=== PATIENT | male | born 1975 | race Caucasian/White ===

== ENCOUNTER 2016-05-06 09:09 | Emergency (ER) | payer OTHER ==
[2016-05-06] MEDS ORDERED: NORCO, ANEXSIA 5/325MG TABLET (HYDROcodone/ACETAMINOPHEN) As Ordered ONE (09:27)
--- NOTE | 2016-05-06 11:19 | EDDOCDS ---
Physician Documentation [facility] Name: Valentin Jimenez Age: 40 yrs Sex: Male : 1975 Arrival Date: 05/06/2016 Time: 09:09 Bed PR Private MD: NO PRIMARY PHYSICIAN, . Disposition: 05/06/16 11:02 Discharged to Home/Self Care. Impression: Pain in right hand. - Condition is Stable. - Discharge Instructions: Arthritis, Nonspecific. - Prescriptions for Hydrocodone- Acetaminophen 5-325 mg Oral Tablet - take 1 tablet by ORAL route every 6 hours As needed MDD: 4 tabs; 16 tablet. - Medication Reconciliation form. - Follow up: Private Physician; When: Call to arrange an appointment; Reason: Wound/Symptom Recheck, Recheck today's complaints, Worsening of conditions, Continuance of care. - Problem is an ongoing problem. - Symptoms have improved. - Notes: Follow up with [facility] on Sunday. Historical: - Allergies: Codeine Sulfate (itching); SULFA (SULFONAMIDES) (Rash); - Home Meds: 1. ibuprofen 200 mg Oral cap 2 caps as needed (Last dose: 05/05/2016) - PMHx: none; - PSHx: rods and pins in hand March (removed Apr 2016); Knee Arthroplasty, Right; - Social history: Smoking status: Patient uses tobacco products, heavy tobacco smoker. No barriers to communication noted, The patient speaks fluent Libyan, Speaks appropriately for age. - Family history: Not pertinent. - : The pt / caregiver states he / she is not on anticoagulants. Home medication list is obtained from the patient. - Exposure Risk Screening:: None identified. Vital Signs: 05/06 09:10 BP 133 / 92; Pulse 84; Resp 18; Temp 98.9; Pulse Ox 100% ; Weight 84.82 kg / 187 lbs; elp Height 6 ft. 1 in. (185.42 cm); Pain 10/10; 11:07 BP 128 / 84; Pulse 64; Resp 18; Temp 97.6(O); Pulse Ox 97% on R/A; Pain 6/10; ct3 09:10 Body Mass Index 24.67 (84.82 kg, 185.42 cm) elp MDM: 09:22 HYDROcodone-acetaminophen 5 mg-325 mg 2 tabs PO once ordered. cc10 09:23 Hand, Complete Ordered. EDMS 09:32 [facility] Payment Agreement was scanned into [employer] and attached to record. mm15 09:32 Financial registration complete. mm15 Administered Medications: 09:28 Drug: HYDROcodone-acetaminophen 2 tabs [hydrocodone 5 mg-acetaminophen 325 mg tablet (2 hs1 tabs)] Route: PO; 11:16 Follow up: Response: Pain is decreased dwg Signatures: Dispatcher [employer] EDSC Ayad Sheridan RN RN dw Marline Amro RN RN hs1 [place] mm15 Aron See PA-C PAMónica cc10 The chart was reviewed and I authenticate all verbal orders and agree with the evaluation and treatment provided.Attachments: 09:32 [facility] Payment Agreement mm15 MTDD
--- NOTE | 2016-05-06 11:19 | EDDOCDS ---
Nurse's Notes [facility] Name: Valentin Jimenez Age: 40 yrs Sex: Male : 1975 Arrival Date: 05/06/2016 Time: 09:09 Bed PR Private MD: NO PRIMARY PHYSICIAN, . Diagnosis: Pain in right hand Presentation: 05/06 09:13 Presenting complaint: Patient states: surgery March 16 in [place] at [facility] for hs1 broken hand - pins placed. Pins removed Apr 25 and patient states has been hurting ever since. Patient goes to physical therapy - patient reports hurting more since physical therapy. Patient states has tried ice and hot packs. Patient here for pain. Adult Sepsis Screening: The patient does not have new or worsening altered mentation. Patient's respiratory rate is less than 22. Systolic blood pressure is greater than 100. Patient has a qSOFA score of 0- Negative Sepsis Screen. Suicide/Homicide risk assessment- the patient denies having any suicidal and/or homicidal ideations and does not present with any other emotional, behavioral or mental health complaints. 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 Transition of care: patient was not received from another setting of care. 09:13 Acuity: DIANA Level 4 hs1 09:13 Method Of Arrival: Walkin/Carried/Asstd hs1 Triage Assessment: 09:17 General: Appears in no apparent distress, Behavior is appropriate for age, cooperative. hs1 Pain: Location: right hand. HIV screening NA for this visit Offered previously. Derm: Skin is pink, warm & dry. normal, surgical site not swollen or red. Musculoskeletal: Range of motion limited in MCP of right ring finger and MCP of right little finger. Historical: - Allergies: Codeine Sulfate (itching); SULFA (SULFONAMIDES) (Rash); - Home Meds: 1. ibuprofen 200 mg Oral cap 2 caps as needed (Last dose: 05/05/2016) - PMHx: none; - PSHx: rods and pins in hand March (removed Apr 2016); Knee Arthroplasty, Right; - Social history: Smoking status: Patient uses tobacco products, heavy tobacco smoker. No barriers to communication noted, The patient speaks fluent Macedonian, Speaks appropriately for age. - Family history: Not pertinent. - : The pt / caregiver states he / she is not on anticoagulants. Home medication list is obtained from the patient. - Exposure Risk Screening:: None identified. Screenin:19 Screening information is obtained from the patient. Fall risk: No risks identified. hs1 Assistance ADL's: requires no assistance with activities of daily living. Abuse/DV Screen: The patient / caregiver reports he/she is: not in a situation that causes fear, pain or injury. Nutritional screening: No deficits noted. Advance Directives: There is no active DNR order. home support is adequate. Assessment: 10:18 Reassessment: Patient states feeling better. Patient states symptoms have improved. hs1 patient stated pain decreasing. . General: Appears in no apparent distress, Behavior is appropriate for age, cooperative. Pain: Location: right hand. Musculoskeletal: Range of motion limited in MCP of right ring finger and MCP of right little finger. Vital Signs: 09:10 BP 133 / 92; Pulse 84; Resp 18; Temp 98.9; Pulse Ox 100% ; Weight 84.82 kg; Height 6 elp ft. 1 in. (185.42 cm); Pain 10/10; 11:07 BP 128 / 84; Pulse 64; Resp 18; Temp 97.6(O); Pulse Ox 97% on R/A; Pain 6/10; ct3 09:10 Body Mass Index 24.67 (84.82 kg, 185.42 cm) [facility] Vitals: 09:10 Log In Time: May 06, 2016 at 09:08. [facility] ED Course: 09:10 Patient visited by Juana Toney PCA. elp 09:10 NO PRIMARY PHYSICIAN, . is Private Physician. elp 09:10 Patient moved to Waiting elp 09:12 Patient visited by Juana Toney PCA. elp 09:12 Patient moved to Triage 2 hs1 09:15 Aron See [facility] cc10 09:15 Trang Lancaster MD is Attending Physician. cc10 09:15 Triage Initiated hs1 09:18 Patient visited by Aron See PA-C. cc10 09:18 Patient visited by Aron See PA-C. cc10 09:28 Patient moved to TR2 hs1 09:32 [facility] Payment Agreement was scanned into [employer] and attached to record. mm15 10:18 Patient visited by Marline Amor RN. hs1 10:48 Patient visited by Lidia Patel PCA. ct3 10:52 Patient moved to ct3 11:09 Patient visited by Lidia Patel PCA. ct3 11:17 The patient / caregiver is instructed regarding the plan of care and ED course. dwg 11:17 No IV's were initiated during this patient's visit. No procedures done that require dwg assistance. 11:18 Patient visited by Ayad Sheridan RN. dwg Administered Medications: 09:28 Drug: HYDROcodone-acetaminophen 2 tabs [hydrocodone 5 mg-acetaminophen 325 mg tablet (2 hs1 tabs)] Route: PO; 11:16 Follow up: Response: Pain is decreased dwg Order Results: There are currently no results for this order. Outcome: 11:02 Discharge ordered by Provider. cc10 11:16 Discharge Assessment: Patient awake, alert and oriented x 3. No cognitive and/or dwg functional deficits noted. Patient verbalized understanding of disposition instructions. patient administered narcotics - yes. Pt provided with safe discharge. The following High Risk Discharge criteria are identified: None. Discharged to home ambulatory. Condition: good Condition: stable. No special radiology studies were completed. Property sent home with patient. 11:17 Patient left the ED. dwg Signatures: Ayad Sheridan, SHARAN RN [facility] Marline Amor, SHARAN RN hs1 Lidia Patel, PARISH NURSE PARISH NURSE ct3 [place] mm15 Juana Toney, PARISH NURSE PARISH NURSE luzp Aron See PA-C PAMónica cc10 MTDD
--- NOTE | 2016-05-08 08:30 | REP ---
P.c. right hand four views: There is a comminuted fracture at the base of the fifth digit metacarpal. There is no dislocation. I suspect there is a fracture at the base of the fourth digit metacarpal without dislocation. No other fractures are identified. Mineralization joint spaces are otherwise unremarkable. Signed by Ayad Shin MD 05/06/2016 10:09 A
--- NOTE | 2016-05-08 12:18 | EDDOCDS ---
Nurse's Notes [facility] Name: Valentin Jimenez Age: 40 yrs Sex: Male : 1975 Arrival Date: 05/06/2016 Time: 09:09 Bed PR Private MD: NO PRIMARY PHYSICIAN, . Diagnosis: Pain in right hand Presentation: 05/06 09:13 Presenting complaint: Patient states: surgery March 16 in [place] at [facility] for hs1 broken hand - pins placed. Pins removed Apr 25 and patient states has been hurting ever since. Patient goes to physical therapy - patient reports hurting more since physical therapy. Patient states has tried ice and hot packs. Patient here for pain. Adult Sepsis Screening: The patient does not have new or worsening altered mentation. Patient's respiratory rate is less than 22. Systolic blood pressure is greater than 100. Patient has a qSOFA score of 0- Negative Sepsis Screen. Suicide/Homicide risk assessment- the patient denies having any suicidal and/or homicidal ideations and does not present with any other emotional, behavioral or mental health complaints. Status: Patient is not a environmental services worker or dependent. Transition of care: patient was not received from another setting of care. 09:13 Acuity: DIANA Level 4 hs1 09:13 Method Of Arrival: Walkin/Carried/Asstd hs1 Triage Assessment: 09:17 General: Appears in no apparent distress, Behavior is appropriate for age, cooperative. hs1 Pain: Location: right hand. HIV screening NA for this visit Offered previously. Derm: Skin is pink, warm & dry. normal, surgical site not swollen or red. Musculoskeletal: Range of motion limited in MCP of right ring finger and MCP of right little finger. Historical: - Allergies: Codeine Sulfate (itching); SULFA (SULFONAMIDES) (Rash); - Home Meds: 1. ibuprofen 200 mg Oral cap 2 caps as needed (Last dose: 05/05/2016) - PMHx: none; - PSHx: rods and pins in hand March (removed Apr 2016); Knee Arthroplasty, Right; - Social history: Smoking status: Patient uses tobacco products, heavy tobacco smoker. No barriers to communication noted, The patient speaks fluent Urdu, Speaks appropriately for age. - Family history: Not pertinent. - : The pt / caregiver states he / she is not on anticoagulants. Home medication list is obtained from the patient. - Exposure Risk Screening:: None identified. Screenin:19 Screening information is obtained from the patient. Fall risk: No risks identified. hs1 Assistance ADL's: requires no assistance with activities of daily living. Abuse/DV Screen: The patient / caregiver reports he/she is: not in a situation that causes fear, pain or injury. Nutritional screening: No deficits noted. Advance Directives: There is no active DNR order. home support is adequate. Assessment: 10:18 Reassessment: Patient states feeling better. Patient states symptoms have improved. hs1 patient stated pain decreasing. . General: Appears in no apparent distress, Behavior is appropriate for age, cooperative. Pain: Location: right hand. Musculoskeletal: Range of motion limited in MCP of right ring finger and MCP of right little finger. Vital Signs: 09:10 BP 133 / 92; Pulse 84; Resp 18; Temp 98.9; Pulse Ox 100% ; Weight 84.82 kg; Height 6 elp ft. 1 in. (185.42 cm); Pain 10/10; 11:07 BP 128 / 84; Pulse 64; Resp 18; Temp 97.6(O); Pulse Ox 97% on R/A; Pain 6/10; ct3 09:10 Body Mass Index 24.67 (84.82 kg, 185.42 cm) [facility] Vitals: 09:10 Log In Time: May 06, 2016 at 09:08. [facility] ED Course: 09:10 Patient visited by Juana Toney PCA. elp 09:10 NO PRIMARY PHYSICIAN, . is Private Physician. elp 09:10 Patient moved to Waiting elp 09:12 Patient visited by Juana Toney PCA. elp 09:12 Patient moved to Triage 2 hs1 09:15 Aron See PA-C [facility] cc10 09:15 Trang Lancaster MD is Attending Physician. cc10 09:15 Triage Initiated hs1 09:18 Patient visited by Aron See PA-C. cc10 09:18 Patient visited by Aron See PA-C. cc10 09:28 Patient moved to TR2 hs1 09:32 [facility] Payment Agreement was scanned into [employer] and attached to record. mm15 10:18 Patient visited by Marline Amor RN. hs1 10:48 Patient visited by Lidia Patel PCA. ct3 10:52 Patient moved to PR ct3 11:09 Patient visited by Lidia Patel PCA. ct3 11:17 The patient / caregiver is instructed regarding the plan of care and ED course. dwg 11:17 No IV's were initiated during this patient's visit. No procedures done that require dwg assistance. 11:18 Patient visited by Ayad Sheridan RN. dwg 12:54 T-Sheet-- Draft Copy was scanned into [employer] and attached to record. [facility] 05/08 08:50 Hand, Complete Returned. EDMS Administered Medications: 05/06 09:28 Drug: HYDROcodone-acetaminophen 2 tabs [hydrocodone 5 mg-acetaminophen 325 mg tablet (2 hs1 tabs)] Route: PO; 11:16 Follow up: Response: Pain is decreased dwg Order Results: Radiology Order: Hand, Complete Test: Hand, Complete REASON FOR EXAMINATION: Deformity/Swelling; P.c. right hand four views:; ; There is a comminuted fracture at the base of the fifth digit metacarpal. There; is no dislocation.; ; I suspect there is a fracture at the base of the fourth digit metacarpal without; dislocation.; ; No other fractures are identified. Mineralization joint spaces are otherwise; unremarkable.; ; ; Signed by; Ayad Shin MD 05/06/2016 10:09 A; Outcome: 11:02 Discharge ordered by Provider. cc10 11:16 Discharge Assessment: Patient awake, alert and oriented x 3. No cognitive and/or dwg functional deficits noted. Patient verbalized understanding of disposition instructions. patient administered narcotics - yes. Pt provided with safe discharge. The following High Risk Discharge criteria are identified: None. Discharged to home ambulatory. Condition: good Condition: stable. No special radiology studies were completed. Property sent home with patient. 11:17 Patient left the ED. dwg Signatures: [facility] Ayad Sheridan RN RN dwMarline Clayton RN RN hs1 Lidia Patel, INFORMATION CLERK [employer] INFORMATION CLERK [employer] ct3 [place] mm15 Juana Toney, INFORMATION CLERK [employer] INFORMATION CLERK [employer] elp Aron See PA-C PA-C cc10 Belen Brown Chart Complete MTDD
--- NOTE | 2016-05-08 12:18 | EDDOCDS ---
Physician Documentation [facility] Name: Valentin Jimenez Age: 40 yrs Sex: Male : 1975 Arrival Date: 05/06/2016 Time: 09:09 Bed PR Private MD: NO PRIMARY PHYSICIAN, . Disposition: 05/06/16 11:02 Discharged to Home/Self Care. Impression: Pain in right hand. - Condition is Stable. - Discharge Instructions: Arthritis, Nonspecific. - Prescriptions for Hydrocodone- Acetaminophen 5-325 mg Oral Tablet - take 1 tablet by ORAL route every 6 hours As needed MDD: 4 tabs; 16 tablet. - Medication Reconciliation form. - Follow up: Private Physician; When: Call to arrange an appointment; Reason: Wound/Symptom Recheck, Recheck today's complaints, Worsening of conditions, Continuance of care. - Problem is an ongoing problem. - Symptoms have improved. - Notes: Follow up with [facility] on Sunday. Historical: - Allergies: Codeine Sulfate (itching); SULFA (SULFONAMIDES) (Rash); - Home Meds: 1. ibuprofen 200 mg Oral cap 2 caps as needed (Last dose: 05/05/2016) - PMHx: none; - PSHx: rods and pins in hand March (removed Apr 2016); Knee Arthroplasty, Right; - Social history: Smoking status: Patient uses tobacco products, heavy tobacco smoker. No barriers to communication noted, The patient speaks fluent [place] Citizen, Speaks appropriately for age. - Family history: Not pertinent. - : The pt / caregiver states he / she is not on anticoagulants. Home medication list is obtained from the patient. - Exposure Risk Screening:: None identified. Vital Signs: 05/06 09:10 BP 133 / 92; Pulse 84; Resp 18; Temp 98.9; Pulse Ox 100% ; Weight 84.82 kg / 187 lbs; elp Height 6 ft. 1 in. (185.42 cm); Pain 10/10; 11:07 BP 128 / 84; Pulse 64; Resp 18; Temp 97.6(O); Pulse Ox 97% on R/A; Pain 6/10; ct3 09:10 Body Mass Index 24.67 (84.82 kg, 185.42 cm) elp MDM: 09:22 HYDROcodone-acetaminophen 5 mg-325 mg 2 tabs PO once ordered. cc10 09:23 Hand, Complete Ordered. EDMS 09:32 [facility] Payment Agreement was scanned into [employer] and attached to record. mm15 09:32 Financial registration complete. mm15 12:54 T-Sheet-- Draft Copy was scanned into [employer] and attached to record. [facility] Administered Medications: 09:28 Drug: HYDROcodone-acetaminophen 2 tabs [hydrocodone 5 mg-acetaminophen 325 mg tablet (2 hs1 tabs)] Route: PO; 11:16 Follow up: Response: Pain is decreased dwg Signatures: Dispatcher [employer] EDMS Ayad Sheridan RN RN dw Marline Amor RN RN hs1 [place] mm15 Aron See PA-C PA-C cc10 Belen Brown se The chart was reviewed and I authenticate all verbal orders and agree with the evaluation and treatment provided.Attachments: 09:32 [facility] Payment Agreement mm15 12:54 T-Sheet-- Draft Copy [facility] Chart Complete MTDD
--- NOTE | 2016-05-08 12:18 | EDDOCDS ---
Physician Documentation [facility] Name: Valentin Jimenez Age: 40 yrs Sex: Male : 1975 Arrival Date: 05/06/2016 Time: 09:09 Bed PR Private MD: NO PRIMARY PHYSICIAN, . Disposition: 05/06/16 11:02 Discharged to Home/Self Care. Impression: Pain in right hand. - Condition is Stable. - Discharge Instructions: Arthritis, Nonspecific. - Prescriptions for Hydrocodone- Acetaminophen 5-325 mg Oral Tablet - take 1 tablet by ORAL route every 6 hours As needed MDD: 4 tabs; 16 tablet. - Medication Reconciliation form. - Follow up: Private Physician; When: Call to arrange an appointment; Reason: Wound/Symptom Recheck, Recheck today's complaints, Worsening of conditions, Continuance of care. - Problem is an ongoing problem. - Symptoms have improved. - Notes: Follow up with [facility] on Sunday. Historical: - Allergies: Codeine Sulfate (itching); SULFA (SULFONAMIDES) (Rash); - Home Meds: 1. ibuprofen 200 mg Oral cap 2 caps as needed (Last dose: 05/05/2016) - PMHx: none; - PSHx: rods and pins in hand March (removed Apr 2016); Knee Arthroplasty, Right; - Social history: Smoking status: Patient uses tobacco products, heavy tobacco smoker. No barriers to communication noted, The patient speaks fluent Stateless, Speaks appropriately for age. - Family history: Not pertinent. - : The pt / caregiver states he / she is not on anticoagulants. Home medication list is obtained from the patient. - Exposure Risk Screening:: None identified. Vital Signs: 05/06 09:10 BP 133 / 92; Pulse 84; Resp 18; Temp 98.9; Pulse Ox 100% ; Weight 84.82 kg / 187 lbs; elp Height 6 ft. 1 in. (185.42 cm); Pain 10/10; 11:07 BP 128 / 84; Pulse 64; Resp 18; Temp 97.6(O); Pulse Ox 97% on R/A; Pain 6/10; ct3 09:10 Body Mass Index 24.67 (84.82 kg, 185.42 cm) elp MDM: 09:22 HYDROcodone-acetaminophen 5 mg-325 mg 2 tabs PO once ordered. cc10 09:23 Hand, Complete Ordered. EDMS 09:32 [facility] Payment Agreement was scanned into [employer] and attached to record. mm15 09:32 Financial registration complete. mm15 12:54 T-Sheet-- Draft Copy was scanned into [employer] and attached to record. [facility] Administered Medications: 09:28 Drug: HYDROcodone-acetaminophen 2 tabs [hydrocodone 5 mg-acetaminophen 325 mg tablet (2 hs1 tabs)] Route: PO; 11:16 Follow up: Response: Pain is decreased dwg Signatures: Dispatcher [employer] EDMS Ayad Sheridan RN RN dw Marline Amor RN RN hs1 [place] mm15 Aron See PA-C PA-C cc10 Belen Brown se The chart was reviewed and I authenticate all verbal orders and agree with the evaluation and treatment provided.Attachments: 09:32 [facility] Payment Agreement mm15 12:54 T-Sheet-- Draft Copy [facility] Chart Complete MTDD
== END 2016-05-06 11:17 | disposition home or self-care (01) ==
LOC: M ED 09:09
DX: M79.641 Pain in right hand (principal); Z87.81 Personal history of (healed) traumatic fracture; Z96.651 Presence of right artificial knee joint; F17.200 Nicotine dependence, unspecified, uncomplicated; Z88.2 Allergy status to sulfonamides; Z88.5 Allergy status to narcotic agent

== ENCOUNTER 2016-06-05 07:03 | Emergency (ER) | payer OTHER ==
--- NOTE | 2016-06-05 08:21 | EDDOCDS ---
Physician Documentation [facility] Name: Valentin Jimenez Age: 40 yrs Sex: Male : 1975 Arrival Date: 06/05/2016 Time: 07:03 Bed I5 / M5 Private MD: Disposition: 06/05/16 08:07 Discharged to Home/Self Care. Impression: Pain in right hand - post procedural, subsequent encounter, Contracture of muscle, hand. - Condition is Stable. - Discharge Instructions: Musculoskeletal Pain. - Prescriptions for Naprosyn 500 mg Oral Tablet - take 1 tablet by ORAL route 2 times per day take with food; 30 tablet. Ultram 50 mg Oral Tablet - take 1 tablet by ORAL route every 6 hours As needed MDD: 4 tabs; 20 tablet. - Medication Reconciliation, Local Pharmacy Hours form. - Follow up: [facility] ([facility]); When: Call to arrange an appointment; Reason: Recheck today's complaints, Continuance of care. - Problem is chronic. - Symptoms are unchanged. - Notes: call surgeon's office today to arrange follow up this week, get physical therapy referral and continued pain management as needed. DO NOT DELAY THIS PROCESS Historical: - Allergies: SULFA (SULFONAMIDES) (Rash); Codeine Sulfate (itching); - Home Meds: 1. none - PMHx: none; - PSHx: rods and pins in hand March (removed Apr 2016); Knee Arthroplasty, Right; - Social history: Smoking status: Patient states former smoker of tobacco. No barriers to communication noted, The patient speaks fluent Bulgarian. - Family history: Not pertinent. - : The pt / caregiver states he / she is not on anticoagulants. Home medication list is obtained from the patient. - Exposure Risk Screening:: None identified. Vital Signs: 06/05 07:06 BP 145 / 102; Pulse 85; Resp 16; Temp 96.9(O); Pulse Ox 98% on R/A; Weight 84.82 kg / kpj 187 lbs (R); Height 6 ft. 1 in. (185.42 cm) (R); Pain 9/10; 07:06 Body Mass Index 24.67 (84.82 kg, 185.42 cm) kp MDM: 07:55 Financial registration complete. lg Signatures: Ronel Alonzo RN RN Kaley Borergo RN RN Elvira Manning, Reg Reg Larry Thompson, LYLE curtis MTDD
--- NOTE | 2016-06-05 08:21 | EDDOCDS ---
Nurse's Notes [facility] Name: Valentin Jimenez Age: 40 yrs Sex: Male : 1975 Arrival Date: 06/05/2016 Time: 07:03 Bed I5 / M5 Private MD: Diagnosis: Pain in right hand-post procedural, subsequent encounter;Contracture of muscle, hand Presentation: 06/05 07:06 Presenting complaint: Patient states: had right hand surgery in Mar. at [facility] pins out in [facility] Apr. now having pain and difficulty making a fist . ring finger and fifth finger won't bend all the way. 07:06 Acuity: DIANA Level 4 [facility] 07:06 Adult Sepsis Screening: The patient does not have new or worsening altered mentation. [facility] Patient's respiratory rate is less than 22. Systolic blood pressure is greater than 100. Patient has a qSOFA score of 0- Negative Sepsis Screen. Suicide/Homicide risk assessment- the patient denies having any suicidal and/or homicidal ideations and does not present with any other emotional, behavioral or mental health complaints. 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 Transition of care: patient was not received from another setting of care. 07:06 Method Of Arrival: Walkin/Carried/Asstd [facility] Triage Assessment: 07:12 General: Appears in no apparent distress, Behavior is appropriate for age. Pain: [facility] Location: dorsal aspect of distal phalanx of right ring finger, dorsal aspect of middle phalanx of right ring finger, dorsal aspect of proximal phalanx of right ring finger, dorsal aspect of distal phalanx of right little finger, dorsal aspect of middle phalanx of right little finger, dorsal aspect of proximal phalanx of right little finger, palmar aspect of distal phalanx of right little finger, palmar aspect of middle phalanx of right little finger, palmar aspect of proximal phalanx of right little finger, palmar aspect of distal phalanx of right ring finger, palmar aspect of middle phalanx of right ring finger, palmar aspect of proximal phalanx of right ring finger and palmar aspect of right wrist Pain currently is 9 out of 10 on a pain scale. Pt Declines HIV testing. Neurological: Level of Consciousness is awake, alert, Oriented to person, place, time. Respiratory: Airway is patent Respiratory effort is even, unlabored. Derm: Skin is pink, warm & dry. Musculoskeletal: Circulation, motion, and sensation intact Capillary refill < 3 seconds in right fingers Range of motion intact in all extremities. Reports pain in right hand Pain is 9 out of 10 on a pain scale. Historical: - Allergies: SULFA (SULFONAMIDES) (Rash); Codeine Sulfate (itching); - Home Meds: 1. none - PMHx: none; - PSHx: rods and pins in hand March (removed Apr 2016); Knee Arthroplasty, Right; - Social history: Smoking status: Patient states former smoker of tobacco. No barriers to communication noted, The patient speaks fluent Kuwaiti. - Family history: Not pertinent. - : The pt / caregiver states he / she is not on anticoagulants. Home medication list is obtained from the patient. - Exposure Risk Screening:: None identified. Screenin:42 Screening information is obtained from the patient. Primary language is Kuwaiti. Fall dls risk: No risks identified. Assistance ADL's: requires no assistance with activities of daily living. Abuse/DV Screen: The patient / caregiver reports he/she is: not in a situation that causes fear, pain or injury. Nutritional screening: No deficits noted. Advance Directives: Currently, there is no health care proxy. There is no active DNR order. There is no living will. There is no Power of Manager User Interface. Advance directive information has not previously been placed in an [facility] medical record. home support is adequate. Assessment: 07:42 General: Appears uncomfortable, well developed, well nourished, well groomed, Behavior dls is cooperative. Awake, alert, oriented. Skin warm and dry. Moves all extremities. Bilateral breath sounds clear. Respirations unlabored. Abdomen soft, non-tender. No apparent distress. The patient / caregiver is instructed regarding the plan of care and ED course. Vital Signs: 07:06 BP 145 / 102; Pulse 85; Resp 16; Temp 96.9(O); Pulse Ox 98% on R/A; Weight 84.82 kg [facility] (R); Height 6 ft. 1 in. (185.42 cm) (R); Pain 9/10; 07:06 Body Mass Index 24.67 (84.82 kg, 185.42 cm) [facility] Vitals: 07:06 Log In Time: June 05, 2016 at 07:05. [facility] ED Course: 07:05 Patient visited by Sandy Rios, Reg. hs2 07:05 Patient moved to Waiting hs2 07:10 Triage Initiated [facility] 07:15 Patient moved to I5 / M5 [facility] 07:41 Pt greeted and oriented to ED. Patient advised of names of staff involved in care, jam1 location of call tsai, wait times and NPO status. Patient has correct armband on for positive identification. Placed in gown. Bed in low position. Call light in reach. Side rails up X 1. Door closed. 07:50 Larry Shafer PA-C is PHCP. ar2 07:50 Gera Urena MD is Attending Physician. ar2 07:50 Patient visited by Larry Shafer PA-C. ar2 08:06 [facility] ([facility]) is Referral Physician. ar2 08:18 No IV's were initiated during this patient's visit. No procedures done that require dls assistance. Order Results: There are currently no results for this order. Outcome: 08:07 Discharge ordered by Provider. ar2 08:18 The following High Risk Discharge criteria are identified: None. Discharged to home dls ambulatory. Condition: stable. Discharge instructions given to patient, Instructed on discharge instructions, follow up and referral plans. medication usage, Demonstrated understanding of instructions, medications, Pt was receptive of discharge instructions/ teaching. Prescriptions given X 2. No special radiology studies were completed. 08:19 Discharge Assessment: Patient awake, alert and oriented x 3. No cognitive and/or dls functional deficits noted. Patient verbalized understanding of disposition instructions. patient administered narcotics - no. The following High Risk Discharge criteria are identified: None. Discharged to home ambulatory. Property sent home with patient. 08:20 Patient left the ED. dls Signatures: Ronel Alonzo, SHARAN TSANG [facility] Kaley Godoy RN SHARAN dls Karina Boateng, MULTIMEDIA SERVICES MANAGER MULTIMEDIA SERVICES MANAGER jam1 Larry Shafer PA-C PA-C ar2 Sandy Rios, Reg Reg hs2 MTDD
--- NOTE | 2016-06-07 09:21 | EDDOCDS ---
Physician Documentation [facility] Name: Valentin Jimenez Age: 40 yrs Sex: Male : 1975 Arrival Date: 06/05/2016 Time: 07:03 Bed I5 / M5 Private MD: Disposition: 06/05/16 08:07 Discharged to Home/Self Care. Impression: Pain in right hand - post procedural, subsequent encounter, Contracture of muscle, hand. - Condition is Stable. - Discharge Instructions: Musculoskeletal Pain. - Prescriptions for Naprosyn 500 mg Oral Tablet - take 1 tablet by ORAL route 2 times per day take with food; 30 tablet. Ultram 50 mg Oral Tablet - take 1 tablet by ORAL route every 6 hours As needed MDD: 4 tabs; 20 tablet. - Medication Reconciliation, Local Pharmacy Hours form. - Follow up: [facility] ([facility]); When: Call to arrange an appointment; Reason: Recheck today's complaints, Continuance of care. - Problem is chronic. - Symptoms are unchanged. - Notes: call surgeon's office today to arrange follow up this week, get physical therapy referral and continued pain management as needed. DO NOT DELAY THIS PROCESS Historical: - Allergies: SULFA (SULFONAMIDES) (Rash); Codeine Sulfate (itching); - Home Meds: 1. none - PMHx: none; - PSHx: rods and pins in hand March (removed Apr 2016); Knee Arthroplasty, Right; - Social history: Smoking status: Patient states former smoker of tobacco. No barriers to communication noted, The patient speaks fluent Turkmen. - Family history: Not pertinent. - : The pt / caregiver states he / she is not on anticoagulants. Home medication list is obtained from the patient. - Exposure Risk Screening:: None identified. Vital Signs: 06/05 07:06 BP 145 / 102; Pulse 85; Resp 16; Temp 96.9(O); Pulse Ox 98% on R/A; Weight 84.82 kg / j 187 lbs (R); Height 6 ft. 1 in. (185.42 cm) (R); Pain 9/10; 07:06 Body Mass Index 24.67 (84.82 kg, 185.42 cm) [facility] MDM: 07:55 Financial registration complete. lg 08:24 [facility] Payment Agreement was scanned into [employer] and attached to record. lg Signatures: Ronel Alonzo RN RN kpj Scott, Debra, RN RN dls Ganter, LoriLee, Larry Quiñonez lg, PA-C PA-C ar2 The chart was reviewed and I authenticate all verbal orders and agree with the evaluation and treatment provided.Attachments: 08:24 [facility] Payment Agreement lg Chart Complete MTDD
--- NOTE | 2016-06-07 09:21 | EDDOCDS ---
Nurse's Notes [facility] Name: Valentin Jimenez Age: 40 yrs Sex: Male : 1975 Arrival Date: 06/05/2016 Time: 07:03 Bed I5 / M5 Private MD: Diagnosis: Pain in right hand-post procedural, subsequent encounter;Contracture of muscle, hand Presentation: 06/05 07:06 Presenting complaint: Patient states: had right hand surgery in Mar. at [facility] pins out in [facility] Apr. now having pain and difficulty making a fist . ring finger and fifth finger won't bend all the way. 07:06 Acuity: DIANA Level 4 [facility] 07:06 Adult Sepsis Screening: The patient does not have new or worsening altered mentation. [facility] Patient's respiratory rate is less than 22. Systolic blood pressure is greater than 100. Patient has a qSOFA score of 0- Negative Sepsis Screen. Suicide/Homicide risk assessment- the patient denies having any suicidal and/or homicidal ideations and does not present with any other emotional, behavioral or mental health complaints. 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 Transition of care: patient was not received from another setting of care. 07:06 Method Of Arrival: Walkin/Carried/Asstd [facility] Triage Assessment: 07:12 General: Appears in no apparent distress, Behavior is appropriate for age. Pain: [facility] Location: dorsal aspect of distal phalanx of right ring finger, dorsal aspect of middle phalanx of right ring finger, dorsal aspect of proximal phalanx of right ring finger, dorsal aspect of distal phalanx of right little finger, dorsal aspect of middle phalanx of right little finger, dorsal aspect of proximal phalanx of right little finger, palmar aspect of distal phalanx of right little finger, palmar aspect of middle phalanx of right little finger, palmar aspect of proximal phalanx of right little finger, palmar aspect of distal phalanx of right ring finger, palmar aspect of middle phalanx of right ring finger, palmar aspect of proximal phalanx of right ring finger and palmar aspect of right wrist Pain currently is 9 out of 10 on a pain scale. Pt Declines HIV testing. Neurological: Level of Consciousness is awake, alert, Oriented to person, place, time. Respiratory: Airway is patent Respiratory effort is even, unlabored. Derm: Skin is pink, warm & dry. Musculoskeletal: Circulation, motion, and sensation intact Capillary refill < 3 seconds in right fingers Range of motion intact in all extremities. Reports pain in right hand Pain is 9 out of 10 on a pain scale. Historical: - Allergies: SULFA (SULFONAMIDES) (Rash); Codeine Sulfate (itching); - Home Meds: 1. none - PMHx: none; - PSHx: rods and pins in hand March (removed Apr 2016); Knee Arthroplasty, Right; - Social history: Smoking status: Patient states former smoker of tobacco. No barriers to communication noted, The patient speaks fluent Vincentian. - Family history: Not pertinent. - : The pt / caregiver states he / she is not on anticoagulants. Home medication list is obtained from the patient. - Exposure Risk Screening:: None identified. Screenin:42 Screening information is obtained from the patient. Primary language is Vincentian. Fall dls risk: No risks identified. Assistance ADL's: requires no assistance with activities of daily living. Abuse/DV Screen: The patient / caregiver reports he/she is: not in a situation that causes fear, pain or injury. Nutritional screening: No deficits noted. Advance Directives: Currently, there is no health care proxy. There is no active DNR order. There is no living will. There is no Power of Donor Floor Technician. Advance directive information has not previously been placed in an [facility] medical record. home support is adequate. Assessment: 07:42 General: Appears uncomfortable, well developed, well nourished, well groomed, Behavior dls is cooperative. Awake, alert, oriented. Skin warm and dry. Moves all extremities. Bilateral breath sounds clear. Respirations unlabored. Abdomen soft, non-tender. No apparent distress. The patient / caregiver is instructed regarding the plan of care and ED course. Vital Signs: 07:06 BP 145 / 102; Pulse 85; Resp 16; Temp 96.9(O); Pulse Ox 98% on R/A; Weight 84.82 kg [facility] (R); Height 6 ft. 1 in. (185.42 cm) (R); Pain 9/10; 07:06 Body Mass Index 24.67 (84.82 kg, 185.42 cm) [facility] Vitals: 07:06 Log In Time: June 05, 2016 at 07:05. [facility] ED Course: 07:05 Patient visited by Sandy Rios, Reg. hs2 07:05 Patient moved to Waiting hs2 07:10 Triage Initiated [facility] 07:15 Patient moved to I5 / M5 [facility] 07:41 Pt greeted and oriented to ED. Patient advised of names of staff involved in care, jam1 location of call tsai, wait times and NPO status. Patient has correct armband on for positive identification. Placed in gown. Bed in low position. Call light in reach. Side rails up X 1. Door closed. 07:50 Larry Shafer PA-C is PHCP. ar2 07:50 Gera Urena MD is Attending Physician. ar2 07:50 Patient visited by Larry Shafer PA-C. ar2 08:06 [facility] ([facility]) is Referral Physician. ar2 08:18 No IV's were initiated during this patient's visit. No procedures done that require dls assistance. 08:24 [facility] Payment Agreement was scanned into You[employer] and attached to record. lg Order Results: There are currently no results for this order. Outcome: 08:07 Discharge ordered by Provider. ar2 08:18 The following High Risk Discharge criteria are identified: None. Discharged to home dls ambulatory. Condition: stable. Discharge instructions given to patient, Instructed on discharge instructions, follow up and referral plans. medication usage, Demonstrated understanding of instructions, medications, Pt was receptive of discharge instructions/ teaching. Prescriptions given X 2. No special radiology studies were completed. 08:19 Discharge Assessment: Patient awake, alert and oriented x 3. No cognitive and/or dls functional deficits noted. Patient verbalized understanding of disposition instructions. patient administered narcotics - no. The following High Risk Discharge criteria are identified: None. Discharged to home ambulatory. Property sent home with patient. 08:20 Patient left the ED. dls Signatures: Ronel Alonzo RN RN [facility] Kaley Godoy RN RN dls Karina Boateng, TAXICAB COORDINATOR TAXICAB COORDINATOR jam1 Elvira Winkler, Reg Reg lg Larry Shafer PA-C PA-C ar2 Sandy Rios, Reg Reg hs2 Chart Complete MTDD
--- NOTE | 2016-06-07 09:21 | EDDOCDS ---
Physician Documentation [facility] Name: Valentin Jimenez Age: 40 yrs Sex: Male : 1975 Arrival Date: 06/05/2016 Time: 07:03 Bed I5 / M5 Private MD: Disposition: 06/05/16 08:07 Discharged to Home/Self Care. Impression: Pain in right hand - post procedural, subsequent encounter, Contracture of muscle, hand. - Condition is Stable. - Discharge Instructions: Musculoskeletal Pain. - Prescriptions for Naprosyn 500 mg Oral Tablet - take 1 tablet by ORAL route 2 times per day take with food; 30 tablet. Ultram 50 mg Oral Tablet - take 1 tablet by ORAL route every 6 hours As needed MDD: 4 tabs; 20 tablet. - Medication Reconciliation, Local Pharmacy Hours form. - Follow up: [facility] ([facility]); When: Call to arrange an appointment; Reason: Recheck today's complaints, Continuance of care. - Problem is chronic. - Symptoms are unchanged. - Notes: call surgeon's office today to arrange follow up this week, get physical therapy referral and continued pain management as needed. DO NOT DELAY THIS PROCESS Historical: - Allergies: SULFA (SULFONAMIDES) (Rash); Codeine Sulfate (itching); - Home Meds: 1. none - PMHx: none; - PSHx: rods and pins in hand March (removed Apr 2016); Knee Arthroplasty, Right; - Social history: Smoking status: Patient states former smoker of tobacco. No barriers to communication noted, The patient speaks fluent Albanian. - Family history: Not pertinent. - : The pt / caregiver states he / she is not on anticoagulants. Home medication list is obtained from the patient. - Exposure Risk Screening:: None identified. Vital Signs: 06/05 07:06 BP 145 / 102; Pulse 85; Resp 16; Temp 96.9(O); Pulse Ox 98% on R/A; Weight 84.82 kg / j 187 lbs (R); Height 6 ft. 1 in. (185.42 cm) (R); Pain 9/10; 07:06 Body Mass Index 24.67 (84.82 kg, 185.42 cm) [facility] MDM: 07:55 Financial registration complete. lg 08:24 COUNTS INCLUDE 234 BEDS AT THE [facility] Payment Agreement was scanned into [employer] and attached to record. lg Signatures: Ronel Alonzo RN RN kpj Scott, Debra, RN RN dls Ganter, LoriLee, Larry Quiñonez lg, PA-C PA-C ar2 The chart was reviewed and I authenticate all verbal orders and agree with the evaluation and treatment provided.Attachments: 08:24 COUNTS INCLUDE 234 BEDS AT THE [facility] Payment Agreement lg Chart Complete MTDD
== END 2016-06-05 08:20 | disposition home or self-care (01) ==
LOC: M ED 07:03
DX: G89.18 Other acute postprocedural pain (principal); M62.441 Contracture of muscle, right hand; Z87.891 Personal history of nicotine dependence; Z88.2 Allergy status to sulfonamides; Z88.5 Allergy status to narcotic agent

== ENCOUNTER 2017-06-29 13:39 | Emergency (ER) | payer SELFPAY, OTHER | END 2017-06-29 18:24 | disposition short-term general hospital (02) | LOC: M ED 13:39 | DX: M51.16 Intervertebral disc disorders with radiculopathy, lumbar region (principal); Z88.2 Allergy status to sulfonamides | CPT/HCPCS: 72148 ==

== ENCOUNTER 2018-03-13 13:15 | Emergency (ER) | payer OTHER, MEDICAID ==
[2018-03-13] MEDS: PERCOCET 5MG/325MG TAB PO (13:52)
== END 2018-03-13 14:12 | disposition home or self-care (01) ==
LOC: M ED 13:15
DX: S02.5XXA Fracture of tooth (traumatic), initial encounter for closed fracture (principal); X58.XXXA Exposure to other specified factors, initial encounter; Y92.89 Other specified places as the place of occurrence of the external cause; Z88.1 Allergy status to other antibiotic agents; Z88.2 Allergy status to sulfonamides; F17.210 Nicotine dependence, cigarettes, uncomplicated
CPT/HCPCS: 99282

== ENCOUNTER 2018-08-22 | Emergency (ER) | payer OTHER ==
[~2018-08-22] VITALS: Ht 185.4 cm; Wt 85.0 kg
[~2018-08-22] MED LIST: AMOX500C PO; APAP500T10 PO; HYDR-3715 PO; IBUP-1022 PO
--- NOTE | 2018-08-22 01:08 | REPVR ---
EXAM: CT Head Without Contrast EXAM DATE/TIME: 08/22/2018 12:27 AM CLINICAL HISTORY: 43 years old, male; Injury or trauma; Fall TECHNIQUE: Imaging protocol: Axial computed tomography images of the head without contrast. Radiation optimization: All CT scans at this facility use at least one of these dose optimization techniques: automated exposure control; mA and/or kV adjustment per patient size (includes targeted exams where dose is matched to clinical indication); or iterative reconstruction. COMPARISON: No relevant prior studies available. FINDINGS: Brain: No CT evidence of acute intracranial hemorrhage or acute territorial infarction. No significant mass effect or midline shift. Basal cisterns patent. Ventricles: Normal in size and configuration. Bones/joints: No acute osseous abnormality. Sinuses: Minimal ethmoid and maxillary sinus mucosal thickening. Mastoid air cells: Grossly unremarkable. Soft tissues: Mild right parietal scalp swelling. IMPRESSION: 1. No CT evidence of acute intracranial pathology. 2. Additional findings, as above. Electronically signed by: Igor Serrano On 08/22/2018 01:08:29 AM
[2018-08-22] MEDS ORDERED: NS 1,000 ML IV ONE (01:15)
--- NOTE | 2018-08-22 01:17 | REPVR ---
EXAM: CT Cervical Spine Without Contrast EXAM DATE/TIME: 08/22/2018 12:27 AM CLINICAL HISTORY: 43 years old, male; Injury or trauma; Fall; Initial encounter; Concussion /head injury TECHNIQUE: Imaging protocol: Axial computed tomography images of the cervical spine without contrast. Coronal and sagittal reformatted images were created and reviewed. Radiation optimization: All CT scans at this facility use at least one of these dose optimization techniques: automated exposure control; mA and/or kV adjustment per patient size (includes targeted exams where dose is matched to clinical indication); or iterative reconstruction. COMPARISON: CT Neck without contrast 09/12/2015 1:16 PM FINDINGS: Vertebrae: Osteopenia. Straightening of the normal cervical lordosis. Alignment anatomic. No CT evidence of acute fracture, dislocation or subluxation. Vertebral body heights maintained. Discs/Spinal canal/Neural foramina: Mild multilevel degenerative changes, characterized by disc space narrowing, osteophytosis and uncovertebral and facet joint hypertrophy. Mild multilevel spinal canal and neural foraminal narrowing. Thyroid gland: Subcentimeter low density left thyroid nodules. Soft tissues: Grossly unremarkable. Lungs: Grossly unremarkable. IMPRESSION: 1. No CT evidence of acute cervical spine traumatic injury. 2. Additional findings, as above. Electronically signed by: Igor Serrano On 08/22/2018 01:17:09 AM
[2018-08-22 01:35] LABS: BASO # 0.1 10^3/uL (0.0-0.2); BASO % 0.7 % (0.0-1.0); EOS # 0.1 10^3/uL (0.0-0.50); HEMATOCRIT 45.7 % (42.0-52.0); HEMOGLOBIN 15.3 g/dl (13.5-17.5); LYMPH # 2.7 10^3/uL (1.5-4.5); LYMPH % 37.7 % (24.0-44.0); MEAN CORPUSCULAR HGB CONC 33.5 g/dl (32.0-36.5); MEAN CORPUSCULAR VOLUME 95.6 fl (80.0-96.0); MONO # 0.4 10^3/uL (0.0-0.8); MONO % 5.3 % (0.0-5.0); PLATELET COUNT, AUTOMATED 232 10^3/uL (150-450); RED BLOOD COUNT 4.78 10^6/uL (4.30-6.10); WHITE BLOOD COUNT 7.2 10^3/uL (4.0-10.0)
[2018-08-22 01:59] LABS: AMPHETAMINES LEVEL URINE NEGATIVE (NEGATIVE); BARBITURATES URINE NEGATIVE (NEGATIVE); BENZODIAZEPINES URINE NEGATIVE (NEGATIVE); CANNABINOIDS URINE POSITIVE (NEGATIVE); COCAINE METABOLITE URINE NEGATIVE (NEGATIVE); METHADONE URINE NEGATIVE (NEGATIVE); OPIATES URINE NEGATIVE (NEGATIVE); PHENCYCLIDINE URINE NEGATIVE (NEGATIVE)
[2018-08-22 02:38] LABS: ALT/SGPT 71 U/L (12-78); BILIRUBIN,DIRECT 0.1 MG/DL (0.0-0.2); BILIRUBIN,TOTAL 0.3 MG/DL (0.2-1.0); BLOOD UREA NITROGEN 13 MG/DL (7-18); CALCIUM LEVEL 8.5 MG/DL (8.5-10.1); CARBON DIOXIDE LEVEL 29 MEQ/L (21-32); CHLORIDE LEVEL 108 MEQ/L (98-107); CPK CREATINE PHOSPHOKINASE 210 U/L (39-308); CREATININE FOR GFR 1.02 MG/DL (0.70-1.30); ETHYL ALCOHOL (ETHANOL) 0.309 % (0.000-0.010); GLOMERULAR FILTRATION RATE > 60.0 (>60); GLUCOSE, FASTING 82 MG/DL (70-100); MB/CK RELATIVE INDEX 0.71 (< OR =4); POTASSIUM SERUM 4.1 MEQ/L (3.5-5.1); SODIUM LEVEL 145 MEQ/L (136-145); TROPONIN I < 0.02 NG/ML (< 0.10)
--- NOTE | 2018-08-22 08:20 | ECGEPIP ---
Stationary ECG Study [facility] - ED Test Date: 2018-08-22 Pat Name: ROBBY GARCIA Department: Room: - Gender: M Human Resources Coordinator: JENNIFER : 1975 Requested By: ALBINO Krueger Order Number: [id number] Reading MD: Sixto Rosa Measurements Intervals [place] Rate: 77 P: 43 ME: 140 QRS: 53 QRSD: 106 T: 19 QT: 372 QTc: 422 Interpretive Statements SINUS RHYTHM LEFT VENTRICULAR HYPERTROPHY NSTTW ABNORMALITIES BASELINE ARTIFACT AFFECTS INTERPRETATION NO PRIORS FOR COMPARISON Electronically Signed On 08-22-2018 8:20:24 EDT by Sixto Rosa
[2018-08-22 09:16] VITALS: BP 138/69
--- NOTE | 2018-08-27 13:34 | ED PDOC ---
Post-Departure Follow-Up jaden rodas faxed formal report of ct c spine for fu Delfina Arias MD August 27, 2018 13:34
== END 2018-08-22 09:18 | disposition home or self-care (01) ==
LOC: M ED
DX: F10.229 Alcohol dependence with intoxication, unspecified (principal); Y90.1 Blood alcohol level of 20-39 mg/100 ml; Z88.1 Allergy status to other antibiotic agents; Z88.2 Allergy status to sulfonamides
CPT/HCPCS: 36415; 70450; 72125; 80048; 80076; 80307; 81001; 82550; 82553; 84443; 85025; 93005; 93041; 94760; 99285; G0480

== ENCOUNTER → 2019-02-03 | Outpatient (CLI) | payer OTHER ==
--- NOTE | 2019-02-03 12:06 | REP ---
Clinical: Chest pain and fatigue . Comparison: None . Technique: PA and lateral. Findings: The mediastinum and cardiac silhouette are normal. The lung schaefer are clear and without acute consolidation, effusion, or pneumothorax. The skeletal structures are intact and normal. Impression: 1. No acute cardiopulmonary process. Electronically Signed by Karri Breaux MD 02/03/2019 11:58 A
[2019-02-03 12:07] LABS: HEMOGLOBIN 14.3 g/dl (13.5-17.5); MEAN CORPUSCULAR HEMOGLOBIN 32.3 pg (27.0-33.0); MEAN CORPUSCULAR HGB CONC 33.3 g/dl (32.0-36.5); MEAN CORPUSCULAR VOLUME 97.1 fl (80.0-96.0); PLATELET COUNT, AUTOMATED 193 10^3/uL (150-450); RED BLOOD COUNT 4.43 10^6/uL (4.30-6.10); WHITE BLOOD COUNT 6.7 10^3/uL (4.0-10.0)
--- NOTE | 2019-02-03 12:09 | REP ---
Clinical: Sciatica . Technique: AP, lateral, bilateral oblique, and coned-down views. Findings: Alignment and lordosis is maintained. The vertebral bodies including transverse process and spinous processes are intact and normal. There is no evidence for acute fracture / compression injury or subluxation. No evidence for spondylolysis or spondylolisthesis. No significant degenerative change is noted. Impression: Normal lumbosacral spine radiograph series. If the patient remains symptomatic consider MRI for further investigation Electronically Signed by Karri Breaux MD 02/03/2019 12:00 P
[2019-02-03 12:36] LABS: HEMOGLOBIN A1c 5.6 %
[2019-02-03 12:40] LABS: ALT/SGPT 78 U/L (12-78); BLOOD UREA NITROGEN 22 MG/DL (7-18); CALCIUM LEVEL 9.3 MG/DL (8.5-10.1); CARBON DIOXIDE LEVEL 31 MEQ/L (21-32); CHLORIDE LEVEL 107 MEQ/L (98-107); CREATININE FOR GFR 1.09 MG/DL (0.70-1.30); GLOMERULAR FILTRATION RATE > 60.0 (>60); GLUCOSE, FASTING 104 MG/DL (70-100); POTASSIUM SERUM 4.3 MEQ/L (3.5-5.1); SODIUM LEVEL 139 MEQ/L (136-145)
[2019-02-03 12:41] LABS: ALBUMIN 3.5 GM/DL (3.2-5.2); BILIRUBIN,TOTAL 0.4 MG/DL (0.2-1.0); CHOLESTEROL LEVEL 222 MG/DL (<200); CHOLESTEROL RISK RATIO 3.041 (<5); HDL CHOLESTEROL 73 MG/DL (>40); LDL CHOLESTEROL 128 MG/DL (<100); NON-HDL-C 149 MG/DL; TESTOSTERONE 797 NG/DL (241-827); TOTAL PROTEIN 7.1 GM/DL (6.4-8.2); TRIGLYCERIDES LEVEL 104 MG/DL (<150)
--- NOTE | 2019-02-03 15:05 | ECGEPIP ---
[facility] Test Date: 2019-02-03 Pat Name: ROBBY GARCIA Department: Room: - Gender: Male Manager Talent: VILMA : 1975 Requested By: Jessica Gotti Order Number: [id number] Reading MD: Moises Greco Measurements Intervals [place] Rate: 51 P: 53 [place]: 153 QRS: 59 QRSD: 97 T: 57 QT: 397 QTc: 367 Interpretive Statements SINUS BRADYCARDIA VOLTAGE CRITERIA FOR LVH Early repolarization. Decreased heart rate compared with 08/22/2018. Electronically Signed on 02-03-2019 15:05:45 EDT by Moises Greco
== END ==
LOC: M LAB 11:12
PROVIDERS: ATTEND Family Medicine
DX: M54.30 Sciatica, unspecified side (principal); R53.83 Other fatigue; D64.9 Anemia, unspecified